=== PATIENT | female | born 1945 | race American Indian/Alaskan Native ===

== ENCOUNTER 2016-12-02 13:48 | Emergency (ER) | payer MEDICARE ==
[2016-12-02 16:46] LABS: Basophils % (Auto) 1.8 % (0.0-1.8); Eosinophils % (Auto) 1.5 % (0.0-4.3); Hematocrit 40.3 % (30.3-42.9); Hemoglobin 13.9 gm/dl (10.1-14.3); Mean Corpuscular HGB Conc 35 % (30-34); Mean Corpuscular Hemoglobin 32 pg (28-32); Mean Corpuscular Volume 92 fl (79-97); Platelet Count 257 K/mm3 (140-440); Red Cell Distribution Width 15.2 % (13.2-15.2); White Blood Count 7.4 K/mm3 (4.5-11.0)
[2016-12-02 17:54] LABS: Anion Gap 16 mmol/L; Blood Urea Nitrogen 9 mg/dL (7-17); Calcium 9.7 mg/dL (8.4-10.2); Carbon Dioxide 24 mmol/L (22-30); Chloride 102.5 mmol/L (98-107); Glucose 130 mg/dL (65-100); Sodium 140 mmol/L (137-145)
[2016-12-02 18:17] LABS: Potassium 2.9 mmol/L (3.6-5.0)
[2016-12-02] MEDS ORDERED: NORVASC PO ONE (19:39)
[2016-12-02] MEDS ORDERED: K-DUR PO ONE (19:39)
--- NOTE | 2016-12-02 20:49 | Emergency Department Report ---
ED General Adult HPI - General Chief complaint: High BP Stated complaint: HIGH BLOOD PRESSURE Time Seen by Provider: 12/02/16 18:37 Source: patient Mode of arrival: Ambulatory Limitations: No Limitations - History of Present Illness Initial comments: 71-year-old female with a past medical history hypertension presents to the hospital complains of elevated blood pressure. Patient has had elevated blood pressure in the past has not been on medications since 1994. She went to a clinic today she was total blood pressures was elevated she needs see a doctor so she presented to the ER. Patient is otherwise asymptomatic and denies headache, blurred vision, focal weakness, numbness, chest pain, or shortness of breath. Severity scale (0 -10): 0 - Related Data Previous Rx's Medication Instructions Recorded Last Taken Type Potassium Chloride [K-Dur] 20 meq PO BID #10 tab 12/02/16 Unknown Rx amLODIPine [Norvasc] 5 mg PO DAILY #30 tab 12/02/16 Unknown Rx Allergies Allergy/AdvReac Type Severity Reaction Status Date / Time No Known Allergies Allergy Unverified 12/02/16 15:37 ED Review of Systems ROS: Stated complaint: HIGH BLOOD PRESSURE Other details as noted in HPI Comment: All other systems reviewed and negative Other: Constitutional: No fevers chills Eyes: No eye pain visual changes ENT: No ear pain or throat pain Neck: Denies pain Respiratory: Denies cough wheezing shortness of breath Cardiovascular: Denies chest pain, palpitations, syncope GI: Denies abdominal pain, nausea, vomiting, diarrhea : Denies dysuria, urinary frequency, or urgency Musculoskeletal: Denies back pain Skin: Denies rash, lesions, erythema Neurologic: Denies headache, numbness, weakness Psychiatric: Denies suicidal ideation, hallucinations ED Past Medical Hx - Past Medical History Hx Hypertension: Yes - Surgical History Additional Surgical History: Hernia 1994 - Social History Smoking Status: Never Smoker Substance Use Type: None - Medications Home Medications: Home Medications Medication Instructions Recorded Confirmed Last Taken Type Potassium Chloride [K-Dur] 20 meq PO BID #10 tab 12/02/16 Unknown Rx amLODIPine [Norvasc] 5 mg PO DAILY #30 tab 12/02/16 Unknown Rx ED Physical Exam - General Limitations: No Limitations - Other Other exam information: General: No limitations, patient is alert in no acute distress Head exam: Atraumatic, normocephalic Eyes exam: Normal appearance ENT: Moist mucous membrane, normal oropharynx Neck exam: Normal inspection, full range of motion Respiratory exam: Clear to auscultation bilateral, no wheezes, rales, crackles Cardiovascular: Normal rate and rhythm, normal heart sounds Abdomen: Soft, nondistended, and nontender, with normal bowel sounds, no rebound, or guarding Extremity: Full range of motion normal inspection no deformity Back: Normal Inspection, full range of motion, no tenderness Neurologic: Alert, oriented x3, cranial nerves intact, no motor or sensory deficit Psychiatric: normal affect, normal mood Skin: Warm, dry, intact ED Course Vital Signs 12/02/16 12/02/16 12/02/16 15:37 18:50 19:03 Temperature 98.6 F 98.5 F Pulse Rate 112 H 95 H Respiratory 18 18 Rate Blood Pressure 162/108 167/89 Blood Pressure 167/94 [Left] O2 Sat by Pulse 100 100 Oximetry 12/02/16 12/02/16 12/02/16 19:11 19:21 19:25 Temperature Pulse Rate 89 89 Respiratory 15 18 16 Rate Blood Pressure 167/89 167/89 Blood Pressure [Left] O2 Sat by Pulse 100 100 99 Oximetry 12/02/16 19:57 Temperature Pulse Rate 95 H Respiratory Rate Blood Pressure 164/63 Blood Pressure [Left] O2 Sat by Pulse Oximetry - Reevaluation(s) Reevaluation #1: 12/02/16 20:46 Provided Norvasc and by mouth potassium. Patient denies any vomiting. Heart rate spontaneously improved and is normal with exception of initial read ED Medical Decision Making - Lab Data Result diagrams: 12/02/16 16:34 12/02/16 16:34 Lab Results 12/02/16 12/02/16 12/02/16 Range/Units 16:34 16:34 16:34 WBC 7.4 (4.5-11.0) K/mm3 RBC 4.40 (3.65-5.03) M/mm3 Hgb 13.9 (10.1-14.3) gm/dl Hct 40.3 (30.3-42.9) % MCV 92 (79-97) fl MCH 32 (28-32) pg MCHC 35 H (30-34) % RDW 15.2 (13.2-15.2) % Plt Count 257 (140-440) K/mm3 Lymph % (Auto) 33.6 (13.4-35.0) % [place] % (Auto) 6.9 (0.0-7.3) % Eos % (Auto) 1.5 (0.0-4.3) % Baso % (Auto) 1.8 (0.0-1.8) % Lymph # 2.5 (1.2-5.4) K/mm3 [place] # 0.5 (0.0-0.8) K/mm3 Eos # 0.1 (0.0-0.4) K/mm3 Baso # 0.1 (0.0-0.1) K/mm3 Seg Neutrophils % 56.2 (40.0-70.0) % Seg Neutrophils # 4.2 (1.8-7.7) K/mm3 Sodium 140 (137-145) mmol/L Potassium 2.9 L* (3.6-5.0) mmol/L Chloride 102.5 (98-107) mmol/L Carbon Dioxide 24 (22-30) mmol/L Anion Gap 16 mmol/L BUN 9 (7-17) mg/dL Creatinine 0.6 L (0.7-1.2) mg/dL Estimated GFR > 60 ml/min BUN/Creatinine Ratio 15.00 % Glucose 130 H (65-100) mg/dL Calcium 9.7 (8.4-10.2) mg/dL Magnesium 1.9 (1.7-2.3) mg/dL - Medical Decision Making Since discharge patient home. Patient has untreated asymptomatic chronic hypertension. Norvasc 5 mg to be initiated as well as by mouth potassium. Patient will be instructed to have her potassium followed up by primary care doctor to ensure that numbers increased - Differential Diagnosis hypertensive emergency, treated hypertension, renal failure Critical Care Time: No Critical care attestation.: If time is entered above; I have spent that time in minutes in the direct care of this critically ill patient, excluding procedure time. ED Disposition Clinical Impression: Chronic hypertension, Hypokalemia Disposition: DISCHARGED TO HOME OR SELFCARE Is pt being admited?: Yes Condition: Stable Instructions: Hypertension (ED), Hypokalemia (ED) Additional Instructions: Take the blood pressure medication as prescribed. Take the potassium tablets as prescribed. Once the potassium tablets are finished you make get potassium in your diet by eating at least one banana a day. Follow-up with the primary care doctor within 3-5 days for repeat blood pressure check as well as repeat potassium check. Prescriptions: amLODIPine [Norvasc] 5 mg PO DAILY #30 tab Potassium Chloride [K-Dur] 20 meq PO BID #10 tab Referrals: MORENO PRATER MD [Staff Physician] - 3-5 Days Time of Disposition: 20:50
[2016-12-02 20:50] VITALS: BP 184/100
== END 2016-12-02 21:05 | disposition home or self-care (01) ==
LOC: ED 13:48
DX: I10 Essential (primary) hypertension (principal); E87.6 Hypokalemia
CPT/HCPCS: 36415; 80048; 83735; 85025; 99283